=== PATIENT | female | born 1975 | race Caucasian/White ===

== ENCOUNTER 2016-10-28 19:42 | Inpatient (IN) | payer MEDICAID ==
[~2016-10-28] VITALS: Ht 165.1 cm; Wt 69.6 kg
[2016-10-28 20:00] LABS: BARBITURATES NEG (NEG); BENZODIAZEPINES NEG (NEG); CANNABINOIDS NEG (NEG); COCAINE NEG (NEG); METHADONE NEG (NEG); OPIATES NEG (NEG); PHENCYCLIDINE NEG (NEG)
[2016-10-28 20:04] LABS: NEG OBC UR NEG; POS OBC UR POS
[2016-10-28] MEDS ORDERED: IV NORMAL SALINE 1000ML BAG 1,000 ML IV ONE (20:15)
[2016-10-28 20:40] LABS: BASO # 0.2 x10^3/uL (0.0-0.2); BASO % 2 % (0-3); EOS % 2 % (0-3); HEMATOCRIT 23.9 % (36.0-47.0); HEMOGLOBIN 7.2 g/dL (12.0-15.5); LYMPH # 2.3 x10^3/uL (1.0-4.8); LYMPH % 33 % (24-48); MEAN CORPUSCULAR HEMOGLOBIN 20 pg (25-35); MEAN CORPUSCULAR HGB CONC 30 g/dL (31-37); MEAN CORPUSCULAR VOLUME 65 fL (79-100); MONO % 10 % (0-9); NEUT % 53 % (31-73); PLATELET COUNT 320 x10^3/uL (140-400); RED BLOOD COUNT 3.67 x10^6/uL (3.50-5.40); WHITE BLOOD COUNT 7.1 x10^3/uL (4.0-11.0)
[2016-10-28 20:51] LABS: CALCIUM 8.1 mg/dL (8.5-10.1); GFR 61.4
[2016-10-28 21:06] LABS: PLT ESTIMATE ADEQUATE (ADEQUATE)
[2016-10-28 21:07] LABS: ANISOCYTOSIS MOD; HYPOCHROMIA MARKED; MICROCYTOSIS MARKED; TARGET CELLS OCC
[2016-10-28 22:16] LABS: NEG OBC FOB NEG; POS OBC FOB POS
[2016-10-28 22:40] LABS: % SAT IRON 2 % (15-34); IRON,SERUM 9 ug/dL (50-170)
[2016-10-28] MEDS ORDERED: ONDANSETRON PF 4 MG/2 ML VIAL. IV PRN (22:45)
[2016-10-28] MEDS ORDERED: ACETAMINOPHEN 325 MG TABLET. PO PRN (22:45)
[2016-10-28] MEDS ORDERED: fentaNYL PF VIAL 100 MCG/2 ML VIAL IV PRN (22:45)
[2016-10-28] MEDS ORDERED: No home medications (22:50)
--- NOTE | 2016-10-28 23:03 | PDOC1 ---
History and Physical Date of Admission Date of Admission DATE: 10/28/16 TIME: 22:59 Identification/Chief Complaint Chief Complaint ingestion of "unknown" substance Problems: Source Source: Chart review, Patient History of Present Illness History of Present Illness she reports to me that she took some of her friends 800 mg ibuprofen, but then realized the last one was NOT ibuprofen, and she felt that she got something "laced" she was agitated in the ER and was given IV ativan to regain calm, now lethargic, Denies any drug use, and has mult skin lesion from either injection or popping that she attributes to oak mite bites, and from injuring herself at work Past Medical History Heme/Onc: Iron deficiency Anemia Psych: Anxiety, Addictions Family History Family History: Family History Unknown Social History Smoke: <1 pack per day Drugs: Crystal meth Current Problem List Problem List Problems Medical Problems: (1) Anemia Status: Acute Problems: Current Medications Current Medications Current Medications Sodium Chloride 1,000 ml @ 1,000 mls/hr 1X ONCE IV Last administered on 20:26; Start 10/28/16 at 20:15; Stop 10/28/16 at 21:14; Status DC Lorazepam (Ativan) 1 mg 1X ONCE IV Last administered on 10/28/16 20:25; Start 10/28/16 at 20:15; Stop 10/28/16 at 20:16; Status DC Ondansetron HCl (Zofran) 4 mg PRN Q8HRS PRN IV NAUSEA/VOMITING; Start 10/28/16 at 22:45; Stop 10/29/16 at 22:44 Fentanyl Citrate (Fentanyl 2ml Vial) 50 mcg PRN Q2HR PRN IV SEVERE PAIN; Start 10/28/16 at 22:45; Stop 10/29/16 at 22:44 Acetaminophen (Tylenol) 650 mg PRN Q4HRS PRN PO FEVER; Start 10/28/16 at 22:45 ; Stop 10/29/16 at 22:44 Active Scripts Active Reported [No home medications] Allergies Allergies: Coded Allergies: morphine (Verified Allergy, Severe, Cardiac Arrest, 08/31/13) ROS General: YES: Fatigue, Malaise, Appetite, No: Chills, Night Sweats, Other PSYCHOLOGICAL ROS: YES: Sleep disturbances, Other, No: Anxiety, Behavioral Disorder, Concentration difficultie, Decreased libido , Depression, Disorientation, Hallucinations, Hostility, Irritablity, Memory difficulties, Mood Swings, Obsessive thoughts Eyes: No Blurry vision, No Decreased vision, No Double vision, No Dry eyes, No Excessive tearing, No Eye Pain, No Itchy Eyes, No Loss of vision, No Photophobia , No Scotomata, No Uses contacts, No Uses glasses, No Other HEENT: No: Heacaches, Visual Changes, Hearing change, Nasal congestion, Nasal discharge, Oral lesions, Sinus pain, Sore Throat, Epistaxis, Sneezing, Snoring, Tinnitus, Vertigo, Vocal changes, Other Respiratory: No: Cough, Hemoptysis, Orthopnea, Pleuritic Pain, Shortness of breath, SOB with excertion, Sputum Changes, Stridor, Tachypnea, Wheezing, Other Cardiovascular: No Chest Pain, No Palpitations, No Orthopnea, No Paroxysmal Noc. Dyspnea, No Edema, No Lt Headedness, No Other Gastrointestinal: Yes Nausea, No Vomiting, No Abdominal Pain, No Diarrhea, No Constipation, No Melena, No Hematochezia, No Other Genitourinary: No Dysuria, No Frequency, No Incontinence, No Hematuria, No Retention, No Discharge, No Urgency, No Pain, No Flank Pain, No Other, No , No , No , No , No , No , No Musculoskeletal: Yes Joint Pain, Yes Joint Stiffness, No Gait Disturbance, No Joint Swelling, No Muscle Pain, No Muscular Weakness , No Pain In:, No Swelling In:, No Other Neurological: No Behavorial Changes, No Bowel/Bladder ControlChng, No Confusion , No Dizziness, No Gait Disturbance, No Headaches, No Impaired Coord/balance, No Memory Loss, No Numbness/Tingling, No Seizures, No Speech Problems, No Tremors, No Visual Changes, No Weakness, No Other Skin: No Dry Skin, No Eczema, No Hair Changes, No Lumps, No Mole Changes, No Mottling, No Nail Changes, No Pruritus, No Rash, No Skin Lesion Changes, No Other, No Acne Physical Exam General: Alert, Oriented X3, Cooperative, mild distress (sedate) HEENT: Atraumatic, PERRLA Lungs: Clear to auscultation Abdomen: Normal bowel sounds, Soft Rectal Exam: not examined Extremities: No edema, Other (small ecchymosis left skin 5cm) Skin: Other (mult skin lesions, ) Neuro: Sensation intact Psych/Mental Status: Mood NL Vitals Vitals Vital Signs Date Time Temp Pulse Resp B/P (MAP) Pulse Ox O2 Delivery O2 Flow Rate FiO2 10/28/16 21:42 88 18 126/84 (98) 99 Room Air 10/28/16 19:42 98.3 98.3 Labs Labs Laboratory Tests Test 10/28/16 19:44 10/28/16 20:30 10/28/16 22:00 Urine Test Negative (NEG) Urine Opiates Screen Neg (NEG) Urine Methadone Screen Neg (NEG) Urine Barbiturates Neg (NEG) Urine Phencyclidine Screen Neg (NEG) Urine Amphetamine/Methamphetamine Pos (NEG) Urine Benzodiazepines Screen Neg (NEG) Urine Cocaine Screen Neg (NEG) Urine Cannabinoids Screen Neg (NEG) Urine Ethyl Alcohol Neg (NEG) White Blood Count 7.1 x10^3/uL (4.0-11.0) Red Blood Count 3.67 x10^6/uL (3.50-5.40) Hemoglobin 7.2 g/dL (12.0-15.5) Hematocrit 23.9 % (36.0-47.0) Mean Corpuscular Volume 65 fL (79-100) Mean Corpuscular Hemoglobin 20 pg (25-35) Mean Corpuscular Hemoglobin Concent 30 g/dL (31-37) Red Cell Distribution Width 18.0 % (11.5-14.5) Platelet Count 320 x10^3/uL (140-400) Neutrophils (%) (Auto) 53 % (31-73) Lymphocytes (%) (Auto) 33 % (24-48) Monocytes (%) (Auto) 10 % (0-9) Eosinophils (%) (Auto) 2 % (0-3) Basophils (%) (Auto) 2 % (0-3) Neutrophils # (Auto) 3.8 x10^3uL (1.8-7.7) Lymphocytes # (Auto) 2.3 x10^3/uL (1.0-4.8) Monocytes # (Auto) 0.7 x10^3/uL (0.0-1.1) Eosinophils # (Auto) 0.1 x10^3/uL (0.0-0.7) Basophils # (Auto) 0.2 x10^3/uL (0.0-0.2) Platelet Estimate Adequate (ADEQUATE) Hypochromasia Marked Anisocytosis Mod Microcytosis Marked Target Cells Occ Sodium Level 142 mmol/L (136-145) Potassium Level 4.0 mmol/L (3.5-5.1) Chloride Level 108 mmol/L (98-107) Carbon Dioxide Level 23 mmol/L (21-32) Anion Gap 11 (6-14) Blood Urea Nitrogen 18 mg/dL (7-20) Creatinine 1.0 mg/dL (0.6-1.0) Estimated GFR (Cockcroft-Gault) 61.4 Glucose Level 90 mg/dL (70-99) Calcium Level 8.1 mg/dL (8.5-10.1) Iron Level 9 ug/dL (50-170) Total Iron Binding Capacity 414 ug/dL (250-450) Iron Saturation 2 % (15-34) Salicylates Level < 2.8 mg/dL (2.8-20.0) Salicylate Last Dose Date Unk Salicylate Last Dose Time Unk Acetaminophen Level < 2 mcg/ml (10-30) Acetaminophen Last Dose Date Unk Acetaminophen Last Dose Time Unk Stool Occult Blood Negative (NEG) Laboratory Tests Test 10/28/16 19:44 10/28/16 20:30 10/28/16 22:00 Urine Test Negative (NEG) Urine Opiates Screen Neg (NEG) Urine Methadone Screen Neg (NEG) Urine Barbiturates Neg (NEG) Urine Phencyclidine Screen Neg (NEG) Urine Amphetamine/Methamphetamine Pos (NEG) Urine Benzodiazepines Screen Neg (NEG) Urine Cocaine Screen Neg (NEG) Urine Cannabinoids Screen Neg (NEG) Urine Ethyl Alcohol Neg (NEG) White Blood Count 7.1 x10^3/uL (4.0-11.0) Red Blood Count 3.67 x10^6/uL (3.50-5.40) Hemoglobin 7.2 g/dL (12.0-15.5) Hematocrit 23.9 % (36.0-47.0) Mean Corpuscular Volume 65 fL (79-100) Mean Corpuscular Hemoglobin 20 pg (25-35) Mean Corpuscular Hemoglobin Concent 30 g/dL (31-37) Red Cell Distribution Width 18.0 % (11.5-14.5) Platelet Count 320 x10^3/uL (140-400) Neutrophils (%) (Auto) 53 % (31-73) Lymphocytes (%) (Auto) 33 % (24-48) Monocytes (%) (Auto) 10 % (0-9) Eosinophils (%) (Auto) 2 % (0-3) Basophils (%) (Auto) 2 % (0-3) Neutrophils # (Auto) 3.8 x10^3uL (1.8-7.7) Lymphocytes # (Auto) 2.3 x10^3/uL (1.0-4.8) Monocytes # (Auto) 0.7 x10^3/uL (0.0-1.1) Eosinophils # (Auto) 0.1 x10^3/uL (0.0-0.7) Basophils # (Auto) 0.2 x10^3/uL (0.0-0.2) Platelet Estimate Adequate (ADEQUATE) Hypochromasia Marked Anisocytosis Mod Microcytosis Marked Target Cells Occ Sodium Level 142 mmol/L (136-145) Potassium Level 4.0 mmol/L (3.5-5.1) Chloride Level 108 mmol/L (98-107) Carbon Dioxide Level 23 mmol/L (21-32) Anion Gap 11 (6-14) Blood Urea Nitrogen 18 mg/dL (7-20) Creatinine 1.0 mg/dL (0.6-1.0) Estimated GFR (Cockcroft-Gault) 61.4 Glucose Level 90 mg/dL (70-99) Calcium Level 8.1 mg/dL (8.5-10.1) Iron Level 9 ug/dL (50-170) Total Iron Binding Capacity 414 ug/dL (250-450) Iron Saturation 2 % (15-34) Salicylates Level < 2.8 mg/dL (2.8-20.0) Salicylate Last Dose Date Unk Salicylate Last Dose Time Unk Acetaminophen Level < 2 mcg/ml (10-30) Acetaminophen Last Dose Date Unk Acetaminophen Last Dose Time Unk Stool Occult Blood Negative (NEG) VTE Prophylaxis Ordered VTE Prophylaxis Devices: No VTE Pharmacological Prophylaxi: Contraindicated Assessment/Plan Assessment/Plan substance abuse meth abuse and denial of use anemia, iron deficiency, prior IV venofer given, PRBC transfusion ordered by ER SHERRELL Barros MD October 28, 2016 23:03
[2016-10-28] MEDS ORDERED: ALPRAZolam 0.5 MG TABLET PO PRN (23:15)
[2016-10-28 23:21] VITALS: BP 105/73
[2016-10-29] VITALS (15 sets, daily range): BP systolic 90–127; BP diastolic 52–84
--- NOTE | 2016-10-29 00:14 | PHYS DOC ---
Past Medical History Past Medical History: Anemia, Diabetes-Type II, Other Additional Past Medical Histor: B12 deficiency, gastritis Past Surgical History: Cholecystectomy, , Gastric Bypass, Other Additional Past Surgical Histo: hernia Alcohol Use: Rarely Drug Use: None Adult General Chief Complaint Chief Complaint: ACCIDENTAL INGESTION HPI HPI Patient is a 41 year old female who presents with ingestion. The patient states she took ibuprofen 800 mg about 45 minutes prior to arrival & had sudden onset of severe agitation & anxiety. She states her friend gave her the pills a year ago & she has taken them in the past with no symptoms. She denies headache, chest pain, shortness of breath, palpitations, abdominal pain, vomiting, diarrhea. She denies possibility of ingestion of other OTC or prescription medications, drugs, or alcohol. Her sisters state that she is addicted to meth & uses frequently. She also states that she has chronic anemia unsure of baseline Hgb, requiring transfusion in the past. Feels weak all over & requests transfusion today. Review of Systems Review of Systems Constitutional: Denies fever or chills, reports generalized weakness, reports agitation Eyes: Denies change in visual acuity HENT: Denies nasal congestion or sore throat Respiratory: Denies cough or shortness of breath Cardiovascular: Denies chest pain or edema GI: Denies abdominal pain, nausea, vomiting, or diarrhea Musculoskeletal: Denies back pain or joint pain Integument: Denies rash or skin lesions Neurologic: Denies headache, focal weakness or sensory changes Current Medications Current Medications Current Medications Medications (Trade) Dose Ordered Sig/Marielle Start Time Stop Time Status Last Admin Dose Admin Lorazepam (Ativan) 1 mg 1X ONCE 10/28/16 20:15 10/28/16 20:16 DC 10/28/16 20:25 1 MG Sodium Chloride 1,000 ml @ 1,000 mls/hr 1X ONCE 10/28/16 20:15 10/28/16 21:14 DC 10/28/16 20:26 1,000 MLS/HR Allergies Allergies Allergies Coded Allergies Type Severity Reaction Last Updated Verified morphine Allergy Severe Cardiac Arrest 08/31/13 Yes Physical Exam Physical Exam Constitutional: Well developed, well nourished, no acute distress, non-toxic appearance. agitated HENT: Normocephalic, atraumatic, bilateral external ears normal, oropharynx moist, nose normal. Eyes: PERRLA 4 mm bilaterally, EOMI, conjunctiva normal, no discharge. Neck: supple, no stridor. Cardiovascular: tachycardic, regular, no murmurs, no edema. Lungs & Thorax: LCTAB, no wheezing, no respiratory distress. Abdomen: soft, nontender, nondistended. Skin: Warm, dry, no erythema, no rash. rounded sores to bilateral forearms without cellulitis. Back: No tenderness. Extremities: No tenderness, no edema. Neurologic: Alert and oriented X 3, CN2-12 grossly intact, symmetric strength/ sensation to UE & LE, no focal deficits noted. Psychologic: agitated Current Patient Data Vital Signs Vital Signs Date Time Temp Pulse Resp B/P (MAP) Pulse Ox O2 Delivery O2 Flow Rate FiO2 10/28/16 21:15 92 16 110/65 (80) 94 Room Air 10/28/16 19:42 98.3 98.3 Lab Values Laboratory Tests Test 10/28/16 19:44 10/28/16 20:30 Urine Test Negative (NEG) Urine Opiates Screen Neg (NEG) Urine Methadone Screen Neg (NEG) Urine Barbiturates Neg (NEG) Urine Phencyclidine Screen Neg (NEG) Urine Amphetamine/Methamphetamine Pos (NEG) Urine Benzodiazepines Screen Neg (NEG) Urine Cocaine Screen Neg (NEG) Urine Cannabinoids Screen Neg (NEG) Urine Ethyl Alcohol Neg (NEG) White Blood Count 7.1 x10^3/uL (4.0-11.0) Red Blood Count 3.67 x10^6/uL (3.50-5.40) Hemoglobin 7.2 g/dL (12.0-15.5) L Hematocrit 23.9 % (36.0-47.0) L Mean Corpuscular Volume 65 fL (79-100) L Mean Corpuscular Hemoglobin 20 pg (25-35) L Mean Corpuscular Hemoglobin Concent 30 g/dL (31-37) L Red Cell Distribution Width 18.0 % (11.5-14.5) H Platelet Count 320 x10^3/uL (140-400) Neutrophils (%) (Auto) 53 % (31-73) Lymphocytes (%) (Auto) 33 % (24-48) Monocytes (%) (Auto) 10 % (0-9) H Eosinophils (%) (Auto) 2 % (0-3) Basophils (%) (Auto) 2 % (0-3) Neutrophils # (Auto) 3.8 x10^3uL (1.8-7.7) Lymphocytes # (Auto) 2.3 x10^3/uL (1.0-4.8) Monocytes # (Auto) 0.7 x10^3/uL (0.0-1.1) Eosinophils # (Auto) 0.1 x10^3/uL (0.0-0.7) Basophils # (Auto) 0.2 x10^3/uL (0.0-0.2) Platelet Estimate Adequate (ADEQUATE) Hypochromasia Marked Anisocytosis Mod Microcytosis Marked Target Cells Occ Sodium Level 142 mmol/L (136-145) Potassium Level 4.0 mmol/L (3.5-5.1) Chloride Level 108 mmol/L (98-107) H Carbon Dioxide Level 23 mmol/L (21-32) Anion Gap 11 (6-14) Blood Urea Nitrogen 18 mg/dL (7-20) Creatinine 1.0 mg/dL (0.6-1.0) Estimated GFR (Cockcroft-Gault) 61.4 Glucose Level 90 mg/dL (70-99) Calcium Level 8.1 mg/dL (8.5-10.1) L Iron Level 9 ug/dL (50-170) L Total Iron Binding Capacity 414 ug/dL (250-450) Iron Saturation 2 % (15-34) L Salicylates Level < 2.8 mg/dL (2.8-20.0) L Salicylate Last Dose Date Unk Salicylate Last Dose Time Unk Acetaminophen Level < 2 mcg/ml (10-30) L Acetaminophen Last Dose Date Unk Acetaminophen Last Dose Time Unk Laboratory Tests 10/28/16 20:30 Laboratory Tests 10/28/16 20:30 EKG EKG Interpreted by me: Normal sinus rhythm rate 93, no acute ST or T wave changes, normal intervals, no ectopy. [] Radiology/Procedures Radiology/Procedures [] Course & Med Decision Making Course & Med Decision Making Pertinent Labs and Imaging studies reviewed. (See chart for details) Patient presents with ingestion & agitation. Neurologically intact, no focal findings. UDS positive for methamphetamines/amphetamines. Gave ativan & IV fluids upon arrival. She became very drowsy but maintained airway. Hgb is 7, she doesn't remember her baseline, no previous visits here, has previously been transfused for Hgb of 6. She is symptomatic per her report so will give 2 units pRBCs & admit for further evaluation. She agrees with plan of care. Discussed with Dr. Ball who agrees to admit to inpatient status. Admitted in stable condition. [] Dragon Disclaimer Dragon Disclaimer This electronic medical record was generated, in whole or in part, using a voice recognition dictation system. Departure Departure Impression: Primary Impression: Anemia Additional Impressions: Methamphetamine abuse Agitation Disposition: ADMITTED INPATIENT Admitting Physician: Claudia Ball Condition: STABLE Referrals: MONIQUE MI MD (PCP) Problem Qualifiers RYAN BRIGGS MD October 29, 2016 00:14
--- NOTE | 2016-10-29 07:12 | EKG ---
[facility] [address] [place] [address] Test Date: 2016-10-28 Test Time: 20:19:44 Pat Name: SHABANA ROCHE Department: Room: 524 1 Gender: F Shipping Room Helper: : [id number] Requested By: RYAN BRIGGS Order Number: [id number] Reading MD: Eric Macario Measurements Intervals [place] Rate: 93 P: 59 CT: 116 QRS: 72 QRSD: 74 T: 39 QT: 346 QTc: 433 Interpretive Statements SINUS RHYTHM Electronically Signed On 10-29-2016 10:44:45 CDT by Eric Macario
[2016-10-29] MEDS ORDERED: B12/1TAB3 PO (10:00)
[2016-10-29] MEDS ORDERED: FERR-26 PO (10:00)
[2016-10-29 10:06] LABS: BASO # 0.1 x10^3/uL (0.0-0.2); BASO % 1 % (0-3); EOS % 2 % (0-3); HEMATOCRIT 28.9 % (36.0-47.0); HEMOGLOBIN 9.2 g/dL (12.0-15.5); LYMPH # 1.3 x10^3/uL (1.0-4.8); LYMPH % 20 % (24-48); MEAN CORPUSCULAR HEMOGLOBIN 22 pg (25-35); MEAN CORPUSCULAR HGB CONC 32 g/dL (31-37); MEAN CORPUSCULAR VOLUME 68 fL (79-100); MONO % 11 % (0-9); NEUT % 65 % (31-73); PLATELET COUNT 296 x10^3/uL (140-400); RED BLOOD COUNT 4.26 x10^6/uL (3.50-5.40); RED CELL DISTRIBUTION WIDTH 21.4 % (11.5-14.5); WHITE BLOOD COUNT 6.5 x10^3/uL (4.0-11.0)
[2016-10-29 10:23] LABS: CREATININE 0.6 mg/dL (0.6-1.0); GFR 110.7; POTASSIUM 4.2 mmol/L (3.5-5.1)
[2016-10-29] MEDS ORDERED: IRON SUCROSE COMPLEX 500 MG in IV NORMAL SALINE 250ML 250 ML IV ONE (10:30)
[2016-10-29] MEDS ORDERED: CYANOCOBALAMIN (VITAMIN B-12) 1,000 MCG/ML VIAL IM ONE (10:30)
[2016-10-29] MEDS ORDERED: VITAMIN B12,B9,B6 COMPLEX 1 TABLET. PO SCH (10:30)
== END 2016-10-29 17:51 | disposition home or self-care (01) | DRG 884 ==
LOC: ER 19:42 → 5 NORTH 21:31
PROVIDERS: ADMIT Internal Medicine; ATTEND Internal Medicine
PROC: 30233N1 Transfusion of Nonautologous Red Blood Cells into Peripheral Vein, Percutaneous Approach (ICD-10-PCS; principal; 2016-10-29)
DX: R45.1 Restlessness and agitation (principal); F15.10 Other stimulant abuse, uncomplicated; D50.9 Iron deficiency anemia, unspecified; E11.9 Type 2 diabetes mellitus without complications; F41.9 Anxiety disorder, unspecified; F17.210 Nicotine dependence, cigarettes, uncomplicated; E53.8 Deficiency of other specified B group vitamins; Z90.49 Acquired absence of other specified parts of digestive tract; Z88.5 Allergy status to narcotic agent; Z98.84 Bariatric surgery status; Z79.899 Other long term (current) drug therapy; Z79.1 Long term (current) use of non-steroidal anti-inflammatories (NSAID)
CPT/HCPCS: 36415; 80048; 80329; 81025; 82274; 83540; 83550; 85007; 85027; 86850; 86870; 86900; 86901; 86902; 86922; 87641; 93005; 96361; 96374; G0481; J1756; J2060; J3010; J3420; J7030; J7050; P9016; 99285-25

== ENCOUNTER 2017-09-23 18:55 | Emergency (ER) | payer OTHER, MEDICAID ==
[2017-09-23 19:48] LABS: ADD MAN DIFF? NO
[2017-09-23 19:50] LABS: BASO % 0 % (0-3); EOS # 0.1 x10^3/uL (0.0-0.7); EOS % 2 % (0-3); HEMATOCRIT 30.4 % (36.0-47.0); HEMOGLOBIN 10.2 g/dL (12.0-15.5); LYMPH # 2.1 x10^3/uL (1.0-4.8); LYMPH % 39 % (24-48); MEAN CORPUSCULAR HEMOGLOBIN 27 pg (25-35); MEAN CORPUSCULAR HGB CONC 34 g/dL (31-37); MEAN CORPUSCULAR VOLUME 79 fL (79-100); MONO # 0.5 x10^3/uL (0.0-1.1); MONO % 10 % (0-9); NEUT # 2.6 x10^3uL (1.8-7.7); NEUT % 49 % (31-73); PLATELET COUNT 359 x10^3/uL (140-400); RED BLOOD COUNT 3.83 x10^6/uL (3.50-5.40); RED CELL DISTRIBUTION WIDTH 16.7 % (11.5-14.5); WHITE BLOOD COUNT 5.4 x10^3/uL (4.0-11.0)
[2017-09-23 20:21] LABS: ALBUMIN 3.1 g/dL (3.4-5.0); ALBUMIN/GLOBULIN RATIO 0.8 (1.0-1.7); ALK PHOS 71 U/L (46-116); ALT (SGPT) 19 U/L (14-59); ANION GAP 5 (6-14); AST (SGOT) 17 U/L (15-37); BLOOD UREA NITROGEN 13 mg/dL (7-20); BUN/CREATININE RATIO 16 (6-20); CALCIUM 8.9 mg/dL (8.5-10.1); CARBON DIOXIDE 28 mmol/L (21-32); CHLORIDE 106 mmol/L (98-107); CREATININE 0.8 mg/dL (0.6-1.0); GLUCOSE 92 mg/dL (70-99); POTASSIUM 3.8 mmol/L (3.5-5.1); SODIUM 139 mmol/L (136-145); TOTAL BILIRUBIN 0.2 mg/dL (0.2-1.0); TOTAL PROTEIN 6.8 g/dL (6.4-8.2)
== END 2017-09-23 21:45 | disposition home or self-care (01) ==
LOC: ER 18:55
DX: R53.1 Weakness (principal); E11.9 Type 2 diabetes mellitus without complications; Z90.49 Acquired absence of other specified parts of digestive tract; Z98.890 Other specified postprocedural states; F15.10 Other stimulant abuse, uncomplicated
CPT/HCPCS: 36415; 80053; 85025; 93005; 99285-25

== ENCOUNTER 2019-07-24 18:19 | Inpatient (IN) | payer BC, OTHER ==
[~2019-07-24] VITALS: Ht 165.1 cm; Wt 65.2 kg
[~2019-07-24 18:19] MED LIST: B12/1TAB3 PO; FERR325T14 PO; No home medications
[2019-07-24] MEDS ORDERED: IV NORMAL SALINE 1000ML BAG 1,000 ML IV SCH (18:54)
[2019-07-24 19:17] LABS: BASO # 0.1 x10^3/uL (0.0-0.2); BASO % 1 % (0-3); EOS # 0.1 x10^3/uL (0.0-0.7); EOS % 2 % (0-3); LYMPH # 2.2 x10^3/uL (1.0-4.8); LYMPH % 36 % (24-48); MEAN CORPUSCULAR HEMOGLOBIN 18 pg (25-35); MEAN CORPUSCULAR HGB CONC 30 g/dL (31-37); MEAN CORPUSCULAR VOLUME 60 fL (79-100); MONO # 0.4 x10^3/uL (0.0-1.1); MONO % 6 % (0-9); NEUT # 3.4 x10^3/uL (1.8-7.7); NEUT % 55 % (31-73); PLATELET COUNT 473 x10^3/uL (140-400); RED BLOOD COUNT 3.36 x10^6/uL (3.50-5.40); WHITE BLOOD COUNT 6.2 x10^3/uL (4.0-11.0)
[2019-07-24 19:20] LABS: HEMOGLOBIN 6.1 g/dL (12.0-15.5)
[2019-07-24 19:21] LABS: HEMATOCRIT 20.2 % (36.0-47.0); PROTHROMBIN TIME PATIENT 12.7 SEC (11.7-14.0)
[2019-07-24 19:36] LABS: CALCIUM 8.1 mg/dL (8.5-10.1); CREATININE 0.6 mg/dL (0.6-1.0); GFR 109.1; POTASSIUM 3.8 mmol/L (3.5-5.1)
[2019-07-24 19:38] LABS: BILIRUBIN,URINE NEGATIVE (NEG); CLARITY,URINE CLEAR; COLOR,URINE YELLOW; NITRITE,URINE NEGATIVE (NEG); PH,URINE 7.5; PROTEIN,URINE NEGATIVE (NEG-TRACE); UROBILINOGEN,URINE 0.2 mg/dL (0.2 mg/dL)
--- NOTE | 2019-07-24 19:43 | PHYS DOC ---
Past Medical History Past Medical History: Anemia, Diabetes-Type II Additional Past Medical Histor: B12 deficiency, gastritis Past Surgical History: Cholecystectomy, , Gastric Bypass Additional Past Surgical Histo: HERNIA REPAIR, RIGHT ANKLE, D&C Smoking Status: Current Every Day Smoker Alcohol Use: None Drug Use: Methamphetamine Adult General Chief Complaint Chief Complaint: DIZZY/LIGHT HEADED HPI HPI Patient is a 44 year old female with history of diet-controlled diabetes, anemia and blood transfusion related to gastric bypass in 2004 who presents with complaint of dizziness and weakness. Patient states she has had episodes of dizziness for the last 5 months that getting worse for the last 2 months. 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 Patient complaining of episodes of palpitation with mild activity without chest pain. Patient states she gets episodes of headache for 5 times a week and uses Advil. Patient denies melena and hematemesis and menometrorrhagia. She states she had history of blood transfusion related to bleeding from gastric bypass surgery. Review of Systems Review of Systems Constitutional: Denies fever or chills [] Eyes: Denies change in visual acuity, redness, or eye pain [] HENT: Denies nasal congestion or sore throat [] Respiratory: Denies cough, reports shortness of breath [] Cardiovascular: No additional information not addressed in HPI [] GI: Denies abdominal pain, nausea, vomiting, bloody stools or diarrhea [] : Denies dysuria or hematuria [] Musculoskeletal: Denies back pain or joint pain [] Integument: Denies rash or skin lesions [] Neurologic: Denies focal weakness or sensory changes, reports dizziness and headache [] Endocrine: Denies polyuria or polydipsia [] All other systems were reviewed and found to be within normal limits, except as documented in this note. Current Medications Current Medications Current Medications Medications (Trade) Dose Ordered Sig/Marielle Start Time Stop Time Status Last Admin Dose Admin Sodium Chloride 1,000 ml @ 1,000 mls/hr Q1H 07/24/19 18:54 07/24/19 19:53 DC 07/24/19 19:03 1,000 MLS/HR Allergies Allergies Allergies Coded Allergies Type Severity Reaction Last Updated Verified morphine Allergy Severe Cardiac Arrest 08/31/13 Yes Physical Exam Physical Exam Constitutional: Well developed, well nourished, mild distress, non-toxic appearance, mild pallor. [] HENT: Normocephalic, atraumatic, bilateral external ears normal, oropharynx moist, no oral exudates, nose normal. [] Eyes: PERRLA, EOMI, conjunctiva normal, no discharge. [] Neck: Normal range of motion, no tenderness, supple, no stridor. [] Cardiovascular:Heart rate regular rhythm, no murmur [] Lungs & Thorax: Bilateral breath sounds clear to auscultation [] Abdomen: Bowel sounds normal, soft, no tenderness, no masses, no pulsatile masses. [] Skin: Warm, dry, no erythema, no rash. [] Back: No tenderness, no CVA tenderness. [] Extremities: No tenderness, no cyanosis, no clubbing, ROM intact, no edema. [] Neurologic: Alert and oriented X 3, normal motor function, normal sensory function, no focal deficits noted. [] Psychologic: Affect normal, judgement normal, mood normal. [] Current Patient Data Vital Signs Vital Signs Date Time Temp Pulse Resp B/P (MAP) Pulse Ox O2 Delivery O2 Flow Rate FiO2 07/24/19 19:03 92 18 100 07/24/19 18:40 98.2 134/79 (97) Room Air 98.2 Lab Values Laboratory Tests Test 07/24/19 19:00 White Blood Count 6.2 x10^3/uL (4.0-11.0) Red Blood Count 3.35 x10^6/uL (3.50-5.70) L Hemoglobin 6.1 g/dL (12.0-15.5) *L Hematocrit 20.2 % (36.0-47.0) *L Mean Corpuscular Volume 60 fL (79-100) L Mean Corpuscular Hemoglobin 18 pg (25-35) L Mean Corpuscular Hemoglobin Concent 30 g/dL (31-37) L Red Cell Distribution Width 18.0 % (11.5-14.5) H Platelet Count 473 x10^3/uL (140-400) H Neutrophils (%) (Auto) 55 % (31-73) Lymphocytes (%) (Auto) 36 % (24-48) Monocytes (%) (Auto) 6 % (0-9) Eosinophils (%) (Auto) 2 % (0-3) Basophils (%) (Auto) 1 % (0-3) Neutrophils # (Auto) 3.4 x10^3/uL (1.8-7.7) Lymphocytes # (Auto) 2.2 x10^3/uL (1.0-4.8) Monocytes # (Auto) 0.4 x10^3/uL (0.0-1.1) Eosinophils # (Auto) 0.1 x10^3/uL (0.0-0.7) Basophils # (Auto) 0.1 x10^3/uL (0.0-0.2) Platelet Estimate Increased (ADEQUATE) Hypochromasia Mod Microcytosis Mod Macrocytosis Slight Rouleaux Present Absolute Reticulocyte Count 0.049 x10^6/uL (0.020-0.120) Percent Reticulocyte Count 1.5 % (0.5-2.3) Immature Reticulocyte Fraction 0.37 (0.20-0.60) Prothrombin Time 12.7 SEC (11.7-14.0) Prothrombin Time INR 1.0 (0.8-1.1) Sodium Level 138 mmol/L (136-145) Potassium Level 3.8 mmol/L (3.5-5.1) Chloride Level 104 mmol/L (98-107) Carbon Dioxide Level 25 mmol/L (21-32) Anion Gap 9 (6-14) Blood Urea Nitrogen 14 mg/dL (7-20) Creatinine 0.6 mg/dL (0.6-1.0) Estimated GFR (Cockcroft-Gault) 109.1 BUN/Creatinine Ratio 23 (6-20) H Glucose Level 82 mg/dL (70-99) Calcium Level 8.1 mg/dL (8.5-10.1) L Magnesium Level 1.9 mg/dL (1.8-2.4) Total Bilirubin 0.2 mg/dL (0.2-1.0) Aspartate Amino Transferase (AST) 26 U/L (15-37) Alanine Aminotransferase (ALT) 19 U/L (14-59) Alkaline Phosphatase 86 U/L (46-116) Creatine Kinase 186 U/L (26-192) Troponin I Quantitative < 0.017 ng/mL (0.000-0.055) SJ-Eel-F-Type Natriuretic Peptide 143 pg/mL (0-124) H Total Protein 6.3 g/dL (6.4-8.2) L Albumin 3.1 g/dL (3.4-5.0) L Albumin/Globulin Ratio 1.0 (1.0-1.7) Lipase 90 U/L (73-393) Thyroid Stimulating Hormone (TSH) 1.760 uIU/mL (0.358-3.74) Laboratory Tests 07/24/19 19:00 Laboratory Tests 07/24/19 19:00 EKG EKG EKG interpreted by me. EKG at 1830 showed sinus tachycardia at rate of 106, left atrial abnormality, RVH, T-wave abnormalities anterior leads, no acute ST and T-wave elevation.] Radiology/Procedures Radiology/Procedures [place] [phone] IMAGING REPORT Signed PATIENT: SHABANA CASTILLO ACCOUNT: [id number] : 1975 LOCATION: ER AGE: 44 SEX: F EXAM STATUS: PRE ER ORD. PHYSICIAN: KELLE CANCINO MD REASON: dizziness PROCEDURE: CHEST PA & LATERAL EXAM: CHEST 2 VIEWS. HISTORY: Dizziness. COMPARISON: 01/30/2007. FINDINGS: Frontal and lateral views of the chest are obtained. There are no confluent infiltrates. There is no pneumothorax or pleural effusion. The heart is not enlarged. Cholecystectomy clips are noted. IMPRESSION: 1. No confluent infiltrates. Electronically signed by: Leny Fajardo MD (07/24/2019 7:52 PM) [id number] DICTATED and SIGNED BY: BILLY FAJARDO MD DATE: 07/24/191951 [address] [address] IMAGING REPORT Signed PATIENT: SHABANA CASTILLO ACCOUNT: [id number] : 1975 LOCATION: ER AGE: 44 SEX: F EXAM STATUS: REG ER ORD. PHYSICIAN: KELLE CANCINO MD REASON: dizziness PROCEDURE: CT HEAD WO CONTRAST EXAM: CT Head without IV contrast INDICATION: Dizziness. TECHNIQUE: Multi-detector row CT images were obtained of the head without the use of IV contrast. All CT scans performed at this facility utilize dose optimization techniques as appropriate to the exam, including the following: Automated exposure control and adjustment of the mA and/or KV according to patient size (this includes techniques or standardized protocols for targeted exams where dose is indication/reason for exam). COMPARISON: None FINDINGS: BRAIN PARENCHYMA: No evidence of acute intraparenchymal hemorrhage or infarct. No abnormal parenchymal density or mass. VENTRICLES & EXTRA-AXIAL SPACES: Ventricles are within normal limits. Basilar cisterns are patent. No pathologic extra-axial fluid collection or mass. ORBITS: Orbital contents are unremarkable. SINUSES: Visualized paranasal sinuses and mastoid air cells are clear. OSSEOUS & SOFT TISSUES: Calvarium and skull base are intact. IMPRESSION: Normal CT of the head without contrast. Electronically signed by: Manuel Jensen MD (07/24/2019 8:46 PM) [facility] DICTATED and SIGNED BY: MANUEL JENSEN MD DATE: 07/24/192045 Course & Med Decision Making Course & Med Decision Making Pertinent Labs and Imaging studies reviewed. (See chart for details) Evaluation of patient in ER showed 44-year-old female patient with history of gastric bypass and anemia and blood transfusion presented to ER with complaining of patient received generalized weakness. Patient had hemoglobin of 6.1 and 2 units of blood for transfusion was requested. Patient requiring admission for further evaluation and treatment. Discussed with Dr. Mary who is in agreement with admission. Discussed findings and plan with patient and family, who acknowledge understanding and agreement. Dragon Disclaimer Dragon Disclaimer This electronic medical record was generated, in whole or in part, using a voice recognition dictation system. Departure Departure Impression: Primary Impression: Severe anemia Additional Impressions: Dizziness History of gastric bypass Disposition: ADMITTED INPATIENT (at 1944) Admitting Physician: FADUMO (Dr. Mary accepted admission at 1943) Condition: IMPROVED Referrals: UNKNOWN PCP NAME (PCP) Problem Qualifiers KELLE CANCINO MD Jul 24, 2019 19:43
[2019-07-24] MEDS ORDERED: DOCUSATE SODIUM 100 MG CAPSULE. PO PRN (19:45)
[2019-07-24] MEDS ORDERED: guaiFENesin ORAL 200 MG/10 ML LIQUID. PO PRN (19:45)
[2019-07-24] MEDS ORDERED: ACETAMINOPHEN 325 MG TABLET. PO PRN ×2 (19:45→20:30)
[2019-07-24] MEDS ORDERED: ZOLPIDEM 5 MG TABLET. PO PRN (19:45)
[2019-07-24] MEDS ORDERED: LORazepam 0.5 MG TABLET PO PRN (19:45)
[2019-07-24] MEDS ORDERED: ALBUTEROL SULFATE 2.5 MG/3 ML NEBU. NEB PRN (19:45)
[2019-07-24] MEDS ORDERED: ONDANSETRON PF 4 MG/2 ML VIAL. IV PRN (19:45)
[2019-07-24 19:48] LABS: ALBUMIN 3.1 g/dL (3.4-5.0); MAGNESIUM 1.9 mg/dL (1.8-2.4); TOTAL BILIRUBIN 0.2 mg/dL (0.2-1.0); TOTAL PROTEIN 6.3 g/dL (6.4-8.2)
[2019-07-24 19:49] LABS: BARBITURATES NEG (NEG); BENZODIAZEPINES NEG (NEG); CANNABINOIDS NEG (NEG); COCAINE NEG (NEG); METHADONE NEG (NEG); OPIATES NEG (NEG); PHENCYCLIDINE NEG (NEG)
[2019-07-24 19:51] LABS: AMPHETAMINE/METHAMPHETAMINE NEG (NEG)
[2019-07-24 19:55] LABS: BACTERIA,URINE 0 /HPF (0-FEW); SQUAMOUS EPITHELIAL CELL,UR FEW /LPF
--- NOTE | 2019-07-24 19:55 | RAD ---
EXAM: CHEST 2 VIEWS. HISTORY: Dizziness. COMPARISON: 01/30/2007. FINDINGS: Frontal and lateral views of the chest are obtained. There are no confluent infiltrates. There is no pneumothorax or pleural effusion. The heart is not enlarged. Cholecystectomy clips are noted. IMPRESSION: 1. No confluent infiltrates. Electronically signed by: Leny Fajardo MD (07/24/2019 7:52 PM) [id number]
[2019-07-24] MEDS: IPRATRPIUM/ALBUTEROL 0.5/2.5MG 3 ML NEBU. NEB SCH ×2 (20:00→23:57)
[2019-07-24 20:17] LABS: U PREG PATIENT NEGATIVE (NEG)
[2019-07-24 20:23] LABS: HYPOCHROMIA MOD; PLT ESTIMATE INCREASED (ADEQUATE)
[2019-07-24 20:25] LABS: MICROCYTOSIS MOD
[2019-07-24 20:26] LABS: ROULEAUX PRESENT
[2019-07-24] MEDS ORDERED: diphenhydrAMINE ORAL ELIXIR 12.5 MG/5 ML ML PO PRN (20:30)
--- NOTE | 2019-07-24 20:31 | PDOC1 ---
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 She managed to get down to safety and since she has had similar episodes in the past she decided to come to the emergency department for further evaluation and treatment. 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 The patient has not had follow-up recently and given that her symptoms were quite similar to other episodes where she needed transfusion she decided to consult. She denied any blurred vision no loss of consciousness he did complain of a headache although cephalic without aura no migraine type. She denies chest pain palpitations shortness of breath no abdominal pain no nausea no vomiting no diarrhea. Her hemoglobin was found to be 6.6 and we were asked to admit for transfusion Past Medical History Heme/Onc: Iron deficiency Anemia Psych: Anxiety, Addictions Family History Family History: Family History Unknown Social History Drugs: Crystal meth Current Problem List Problem List Problems Medical Problems: (1) Severe anemia Status: Acute Current Medications Current Medications Current Medications Medications (Trade) Dose Ordered Sig/Marielle Start Time Stop Time Status Last Admin Dose Admin Acetaminophen (Tylenol) 650 mg PRN Q4HRS PRN 07/24/19 19:45 Albuterol Sulfate (Ventolin Neb Soln) 2.5 mg PRN Q4HRS PRN 07/24/19 19:45 Albuterol/ Ipratropium (Duoneb) 3 ml Q4HRS 07/24/19 20:00 Docusate Sodium (Colace) 100 mg PRN BID PRN 07/24/19 19:45 Ferrous Sulfate (Feosol) 325 mg DAILY 07/25/19 09:00 Guaifenesin (Robitussin) 200 mg PRN Q4HRS PRN 07/24/19 19:45 Lorazepam (Ativan) 0.5 mg PRN Q4HRS PRN 07/24/19 19:45 Ondansetron HCl (Zofran) 4 mg PRN Q4HRS PRN 07/24/19 19:45 Sodium Chloride 1,000 ml @ 1,000 mls/hr Q1H 07/24/19 18:54 07/24/19 19:53 DC 07/24/19 19:03 1,000 MLS/HR Vitamin B Complex (Jacinto B) 1 tab DAILY 07/25/19 09:00 Zolpidem Tartrate (Ambien) 5 mg PRN QHS PRN 07/24/19 19:45 Allergies Allergies Allergies Coded Allergies Type Severity Reaction Last Updated Verified morphine Allergy Severe Cardiac Arrest 08/31/13 Yes ROS Review of System CONSTITUTIONAL: No fever or chills EYES: No recent changes SKIN: No rash or itching CARDIOVASCULAR: No chest pain, syncope, palpitations, or edema RESPIRATORY: No SOB or cough GASTROINTESTINAL: No nausea, vomiting or abdominal pain NEUROLOGICAL: No headaches or weakness ENDOCRINE: No cold or heat intolerance GENITOURINARY: No urgency or frequency of urination MUSCULOSKELETAL: No back pain or joint pain LYMPHATICS: No enlarged lymph nodes PSYCHIATRIC: No anxiety or depression Physical Exam Physical Exam GEN.: No apparent distress. Alert and oriented. HEENT: Head is normocephalic, atraumatic NECK: Supple. LUNGS: Clear to auscultation. HEART: RRR, S1, S2 present. Peripheral pulses intact ABDOMEN: Soft, nontender. Positive bowel sounds. EXTREMITIES: Without any cyanosis. NEUROLOGIC: Normal speech, normal tone PSYCHIATRIC: Normal affect, normal mood. SKIN: No ulcerations Vitals Vitals Vital Signs Date Time Temp Pulse Resp B/P (MAP) Pulse Ox O2 Delivery O2 Flow Rate FiO2 07/24/19 19:03 92 18 100 07/24/19 18:40 98.2 134/79 (97) Room Air 98.2 Labs Labs Laboratory Tests Test 07/24/19 19:00 07/24/19 19:30 White Blood Count 6.2 x10^3/uL (4.0-11.0) Red Blood Count 3.35 x10^6/uL (3.50-5.70) Hemoglobin 6.1 g/dL (12.0-15.5) Hematocrit 20.2 % (36.0-47.0) Mean Corpuscular Volume 60 fL (79-100) Mean Corpuscular Hemoglobin 18 pg (25-35) Mean Corpuscular Hemoglobin Concent 30 g/dL (31-37) Red Cell Distribution Width 18.0 % (11.5-14.5) Platelet Count 473 x10^3/uL (140-400) Neutrophils (%) (Auto) 55 % (31-73) Lymphocytes (%) (Auto) 36 % (24-48) Monocytes (%) (Auto) 6 % (0-9) Eosinophils (%) (Auto) 2 % (0-3) Basophils (%) (Auto) 1 % (0-3) Neutrophils # (Auto) 3.4 x10^3/uL (1.8-7.7) Lymphocytes # (Auto) 2.2 x10^3/uL (1.0-4.8) Monocytes # (Auto) 0.4 x10^3/uL (0.0-1.1) Eosinophils # (Auto) 0.1 x10^3/uL (0.0-0.7) Basophils # (Auto) 0.1 x10^3/uL (0.0-0.2) Platelet Estimate Increased (ADEQUATE) Hypochromasia Mod Microcytosis Mod Macrocytosis Slight Rouleau Present Absolute Reticulocyte Count 0.049 x10^6/uL (0.020-0.120) Percent Reticulocyte Count 1.5 % (0.5-2.3) Immature Reticulocyte Fraction 0.37 (0.20-0.60) Prothrombin Time 12.7 SEC (11.7-14.0) Prothromb Time International Ratio 1.0 (0.8-1.1) Sodium Level 138 mmol/L (136-145) Potassium Level 3.8 mmol/L (3.5-5.1) Chloride Level 104 mmol/L (98-107) Carbon Dioxide Level 25 mmol/L (21-32) Anion Gap 9 (6-14) Blood Urea Nitrogen 14 mg/dL (7-20) Creatinine 0.6 mg/dL (0.6-1.0) Estimated GFR (Cockcroft-Gault) 109.1 BUN/Creatinine Ratio 23 (6-20) Glucose Level 82 mg/dL (70-99) Calcium Level 8.1 mg/dL (8.5-10.1) Magnesium Level 1.9 mg/dL (1.8-2.4) Total Bilirubin 0.2 mg/dL (0.2-1.0) Aspartate Amino Transf (AST/SGOT) 26 U/L (15-37) Alanine Aminotransferase (ALT/SGPT) 19 U/L (14-59) Alkaline Phosphatase 86 U/L (46-116) Creatine Kinase 186 U/L (26-192) Troponin I Quantitative < 0.017 ng/mL (0.000-0.055) GN-Eat-S-Type Natriuretic Peptide 143 pg/mL (0-124) Total Protein 6.3 g/dL (6.4-8.2) Albumin 3.1 g/dL (3.4-5.0) Albumin/Globulin Ratio 1.0 (1.0-1.7) Lipase 90 U/L (73-393) Thyroid Stimulating Hormone (TSH) 1.760 uIU/mL (0.358-3.74) Urine Collection Type Unknown Urine Color Yellow Urine Clarity Clear Urine pH 7.5 Urine Specific [place] 1.020 Urine Protein Negative mg/dL (NEG-TRACE) Urine Glucose (UA) Negative mg/dL (NEG) Urine Ketones (Stick) Negative mg/dL (NEG) Urine Blood Negative (NEG) Urine Nitrite Negative (NEG) Urine Bilirubin Negative (NEG) Urine Urobilinogen Dipstick 0.2 mg/dL (0.2 mg/dL) Urine Leukocyte Esterase Negative (NEG) Urine RBC 1-2 /HPF (0-2) Urine WBC 1-4 /HPF (0-4) Urine Squamous Epithelial Cells Few /LPF Urine Bacteria 0 /HPF (0-FEW) Urine Test Negative (NEG) Urine Opiates Screen Neg (NEG) Urine Methadone Screen Neg (NEG) Urine Barbiturates Neg (NEG) Urine Phencyclidine Screen Neg (NEG) Urine Amphetamine/Methamphetamine Neg (NEG) Urine Benzodiazepines Screen Neg (NEG) Urine Cocaine Screen Neg (NEG) Urine Cannabinoids Screen Neg (NEG) Urine Ethyl Alcohol Neg (NEG) Laboratory Tests Test 07/24/19 19:00 07/24/19 19:30 White Blood Count 6.2 x10^3/uL (4.0-11.0) Red Blood Count 3.35 x10^6/uL (3.50-5.70) Hemoglobin 6.1 g/dL (12.0-15.5) Hematocrit 20.2 % (36.0-47.0) Mean Corpuscular Volume 60 fL (79-100) Mean Corpuscular Hemoglobin 18 pg (25-35) Mean Corpuscular Hemoglobin Concent 30 g/dL (31-37) Red Cell Distribution Width 18.0 % (11.5-14.5) Platelet Count 473 x10^3/uL (140-400) Neutrophils (%) (Auto) 55 % (31-73) Lymphocytes (%) (Auto) 36 % (24-48) Monocytes (%) (Auto) 6 % (0-9) Eosinophils (%) (Auto) 2 % (0-3) Basophils (%) (Auto) 1 % (0-3) Neutrophils # (Auto) 3.4 x10^3/uL (1.8-7.7) Lymphocytes # (Auto) 2.2 x10^3/uL (1.0-4.8) Monocytes # (Auto) 0.4 x10^3/uL (0.0-1.1) Eosinophils # (Auto) 0.1 x10^3/uL (0.0-0.7) Basophils # (Auto) 0.1 x10^3/uL (0.0-0.2) Platelet Estimate Increased (ADEQUATE) Hypochromasia Mod Microcytosis Mod Macrocytosis Slight Rouleau Present Absolute Reticulocyte Count 0.049 x10^6/uL (0.020-0.120) Percent Reticulocyte Count 1.5 % (0.5-2.3) Immature Reticulocyte Fraction 0.37 (0.20-0.60) Prothrombin Time 12.7 SEC (11.7-14.0) Prothromb Time International Ratio 1.0 (0.8-1.1) Sodium Level 138 mmol/L (136-145) Potassium Level 3.8 mmol/L (3.5-5.1) Chloride Level 104 mmol/L (98-107) Carbon Dioxide Level 25 mmol/L (21-32) Anion Gap 9 (6-14) Blood Urea Nitrogen 14 mg/dL (7-20) Creatinine 0.6 mg/dL (0.6-1.0) Estimated GFR (Cockcroft-Gault) 109.1 BUN/Creatinine Ratio 23 (6-20) Glucose Level 82 mg/dL (70-99) Calcium Level 8.1 mg/dL (8.5-10.1) Magnesium Level 1.9 mg/dL (1.8-2.4) Total Bilirubin 0.2 mg/dL (0.2-1.0) Aspartate Amino Transf (AST/SGOT) 26 U/L (15-37) Alanine Aminotransferase (ALT/SGPT) 19 U/L (14-59) Alkaline Phosphatase 86 U/L (46-116) Creatine Kinase 186 U/L (26-192) Troponin I Quantitative < 0.017 ng/mL (0.000-0.055) ZX-Aev-X-Type Natriuretic Peptide 143 pg/mL (0-124) Total Protein 6.3 g/dL (6.4-8.2) Albumin 3.1 g/dL (3.4-5.0) Albumin/Globulin Ratio 1.0 (1.0-1.7) Lipase 90 U/L (73-393) Thyroid Stimulating Hormone (TSH) 1.760 uIU/mL (0.358-3.74) Urine Collection Type Unknown Urine Color Yellow Urine Clarity Clear Urine pH 7.5 Urine Specific [place] 1.020 Urine Protein Negative mg/dL (NEG-TRACE) Urine Glucose (UA) Negative mg/dL (NEG) Urine Ketones (Stick) Negative mg/dL (NEG) Urine Blood Negative (NEG) Urine Nitrite Negative (NEG) Urine Bilirubin Negative (NEG) Urine Urobilinogen Dipstick 0.2 mg/dL (0.2 mg/dL) Urine Leukocyte Esterase Negative (NEG) Urine RBC 1-2 /HPF (0-2) Urine WBC 1-4 /HPF (0-4) Urine Squamous Epithelial Cells Few /LPF Urine Bacteria 0 /HPF (0-FEW) Urine Test Negative (NEG) Urine Opiates Screen Neg (NEG) Urine Methadone Screen Neg (NEG) Urine Barbiturates Neg (NEG) Urine Phencyclidine Screen Neg (NEG) Urine Amphetamine/Methamphetamine Neg (NEG) Urine Benzodiazepines Screen Neg (NEG) Urine Cocaine Screen Neg (NEG) Urine Cannabinoids Screen Neg (NEG) Urine Ethyl Alcohol Neg (NEG) VTE Prophylaxis Ordered VTE Prophylaxis Devices: Yes VTE Pharmacological Prophylaxi: No Assessment/Plan Assessment/Plan Iron deficiency anemia symptomatic History of gastric bypass Plan: Transfuse 1 unit of packed red blood cells Reassess in the a.m. Labs in the a.m. DVT prophylaxis SCDs Further recommendations based on the clinical course XENA LEE MD Jul 24, 2019 20:31
--- NOTE | 2019-07-24 20:48 | EKG ---
[facility] [address] [place] [address] Test Date: 2019-07-24 Test Time: 18:30:43 Pat Name: SHABANA CASTILLO Department: Room: Gender: F Research [employer] Evaluation Analyst: : 1975 Requested By: KELLE CANCINO Order Number: [id number] Reading MD: Measurements Intervals Graham Rate: 106 P: 51 RI: 94 QRS: 66 QRSD: 82 T: 18 QT: 384 QTc: 512 Interpretive Statements SINUS TACHYCARDIA LEFT ATRIAL ABNORMALITY CONSIDER RIGHT VENTRICULAR HYPERTROPHY T ABNORMALITY IN ANTERIOR LEADS ABNORMAL ECG RI6.01 No previous ECG available for comparison
--- NOTE | 2019-07-24 20:49 | RAD ---
EXAM: CT Head without IV contrast INDICATION: Dizziness. TECHNIQUE: Multi-detector row CT images were obtained of the head without the use of IV contrast. All CT scans performed at this facility utilize dose optimization techniques as appropriate to the exam, including the following: Automated exposure control and adjustment of the mA and/or KV according to patient size (this includes techniques or standardized protocols for targeted exams where dose is indication/reason for exam). COMPARISON: None FINDINGS: BRAIN PARENCHYMA: No evidence of acute intraparenchymal hemorrhage or infarct. No abnormal parenchymal density or mass. VENTRICLES & EXTRA-AXIAL SPACES: Ventricles are within normal limits. Basilar cisterns are patent. No pathologic extra-axial fluid collection or mass. ORBITS: Orbital contents are unremarkable. SINUSES: Visualized paranasal sinuses and mastoid air cells are clear. OSSEOUS & SOFT TISSUES: Calvarium and skull base are intact. IMPRESSION: Normal CT of the head without contrast. Electronically signed by: Kirti Ledesma MD (07/24/2019 8:46 PM) [facility]
[2019-07-24 21:30] VITALS: BP 145/85
[2019-07-24] MEDS ORDERED: KETOROLAC 30 MG/ML VIAL. IVP PRN (22:00)
[2019-07-24 23:00] VITALS: BP 114/66
[2019-07-24 23:15] VITALS: BP 124/71
[2019-07-24 23:45] VITALS: BP 115/70
[2019-07-25] VITALS (9 sets, daily range): BP systolic 111–143; BP diastolic 69–88
[2019-07-25 05:10] LABS: HEMOGLOBIN 7.4 g/dL (12.0-15.5)
[2019-07-25] MEDS: IPRATRPIUM/ALBUTEROL 0.5/2.5MG 3 ML NEBU. NEB SCH (08:00)
[2019-07-25] MEDS ORDERED: FERROUS SULFATE 325 MG TABLET. PO SCH (09:00)
[2019-07-25] MEDS ORDERED: VITAMIN B COMPLEX TABLET. PO SCH (09:00)
[2019-07-25] MEDS ORDERED: KETOROLAC 15 MG/ML VIAL. IVP ONE (09:15)
[2019-07-25] MEDS ORDERED: DEXAMETHASONE SOD PHOS 4 MG/ML VIAL IVP ONE (09:15)
[2019-07-25] MEDS ORDERED: PROCHLORPERAZINE 10 MG/2 ML VIAL. IM PRN (09:15)
[2019-07-25] MEDS ORDERED: IRON SUCROSE COMPLEX 400 MG in IV NORMAL SALINE 250ML 250 ML IV ONE (09:30)
--- NOTE | 2019-07-25 10:48 | PDOC3 ---
Discharge Summary Visit Information Date of Admission: Jul 24, 2019 Date of Discharge: Jul 25, 2019 Admitting Diagnosis Comment: Iron deficiency anemia symptomatic History of gastric bypass Final Diagnosis Problems Medical Problems: (1) Dizziness Status: Acute (2) Severe anemia Status: Acute Brief Hospital Course Allergies Allergies Coded Allergies Type Severity Reaction Last Updated Verified morphine Allergy Severe Cardiac Arrest 08/31/13 Yes Vital Signs Vital Signs Date Time Temp Pulse Resp B/P (MAP) Pulse Ox O2 Delivery O2 Flow Rate FiO2 07/25/19 07:59 98.3 82 18 140/80 (100) 98 Room Air 98.3 Lab Results Laboratory Tests Test 07/24/19 19:00 07/24/19 19:30 07/25/19 04:35 White Blood Count 6.2 x10^3/uL (4.0-11.0) Red Blood Count 3.35 x10^6/uL (3.50-5.70) Hemoglobin 6.1 g/dL (12.0-15.5) 7.4 g/dL (12.0-15.5) Hematocrit 20.2 % (36.0-47.0) 24.0 % (36.0-47.0) Mean Corpuscular Volume 60 fL (79-100) Mean Corpuscular Hemoglobin 18 pg (25-35) Mean Corpuscular Hemoglobin Concent 30 g/dL (31-37) Red Cell Distribution Width 18.0 % (11.5-14.5) Platelet Count 473 x10^3/uL (140-400) Neutrophils (%) (Auto) 55 % (31-73) Lymphocytes (%) (Auto) 36 % (24-48) Monocytes (%) (Auto) 6 % (0-9) Eosinophils (%) (Auto) 2 % (0-3) Basophils (%) (Auto) 1 % (0-3) Neutrophils # (Auto) 3.4 x10^3/uL (1.8-7.7) Lymphocytes # (Auto) 2.2 x10^3/uL (1.0-4.8) Monocytes # (Auto) 0.4 x10^3/uL (0.0-1.1) Eosinophils # (Auto) 0.1 x10^3/uL (0.0-0.7) Basophils # (Auto) 0.1 x10^3/uL (0.0-0.2) Platelet Estimate Increased (ADEQUATE) Hypochromasia Mod Microcytosis Mod Macrocytosis Slight Rouleau Present Absolute Reticulocyte Count 0.049 x10^6/uL (0.020-0.120) Percent Reticulocyte Count 1.5 % (0.5-2.3) Immature Reticulocyte Fraction 0.37 (0.20-0.60) Prothrombin Time 12.7 SEC (11.7-14.0) Prothromb Time International Ratio 1.0 (0.8-1.1) Sodium Level 138 mmol/L (136-145) Potassium Level 3.8 mmol/L (3.5-5.1) Chloride Level 104 mmol/L (98-107) Carbon Dioxide Level 25 mmol/L (21-32) Anion Gap 9 (6-14) Blood Urea Nitrogen 14 mg/dL (7-20) Creatinine 0.6 mg/dL (0.6-1.0) Estimated GFR (Cockcroft-Gault) 109.1 BUN/Creatinine Ratio 23 (6-20) Glucose Level 82 mg/dL (70-99) Calcium Level 8.1 mg/dL (8.5-10.1) Magnesium Level 1.9 mg/dL (1.8-2.4) Total Bilirubin 0.2 mg/dL (0.2-1.0) Aspartate Amino Transf (AST/SGOT) 26 U/L (15-37) Alanine Aminotransferase (ALT/SGPT) 19 U/L (14-59) Alkaline Phosphatase 86 U/L (46-116) Creatine Kinase 186 U/L (26-192) Troponin I Quantitative < 0.017 ng/mL (0.000-0.055) DH-Het-F-Type Natriuretic Peptide 143 pg/mL (0-124) Total Protein 6.3 g/dL (6.4-8.2) Albumin 3.1 g/dL (3.4-5.0) Albumin/Globulin Ratio 1.0 (1.0-1.7) Lipase 90 U/L (73-393) Thyroid Stimulating Hormone (TSH) 1.760 uIU/mL (0.358-3.74) Urine Collection Type Unknown Urine Color Yellow Urine Clarity Clear Urine pH 7.5 Urine Specific [place] 1.020 Urine Protein Negative mg/dL (NEG-TRACE) Urine Glucose (UA) Negative mg/dL (NEG) Urine Ketones (Stick) Negative mg/dL (NEG) Urine Blood Negative (NEG) Urine Nitrite Negative (NEG) Urine Bilirubin Negative (NEG) Urine Urobilinogen Dipstick 0.2 mg/dL (0.2 mg/dL) Urine Leukocyte Esterase Negative (NEG) Urine RBC 1-2 /HPF (0-2) Urine WBC 1-4 /HPF (0-4) Urine Squamous Epithelial Cells Few /LPF Urine Bacteria 0 /HPF (0-FEW) Urine Test Negative (NEG) Urine Opiates Screen Neg (NEG) Urine Methadone Screen Neg (NEG) Urine Barbiturates Neg (NEG) Urine Phencyclidine Screen Neg (NEG) Urine Amphetamine/Methamphetamine Neg (NEG) Urine Benzodiazepines Screen Neg (NEG) Urine Cocaine Screen Neg (NEG) Urine Cannabinoids Screen Neg (NEG) Urine Ethyl Alcohol Neg (NEG) Laboratory Tests Test 07/24/19 19:00 07/24/19 19:30 07/25/19 04:35 White Blood Count 6.2 x10^3/uL (4.0-11.0) Red Blood Count 3.35 x10^6/uL (3.50-5.70) Hemoglobin 6.1 g/dL (12.0-15.5) 7.4 g/dL (12.0-15.5) Hematocrit 20.2 % (36.0-47.0) 24.0 % (36.0-47.0) Mean Corpuscular Volume 60 fL (79-100) Mean Corpuscular Hemoglobin 18 pg (25-35) Mean Corpuscular Hemoglobin Concent 30 g/dL (31-37) Red Cell Distribution Width 18.0 % (11.5-14.5) Platelet Count 473 x10^3/uL (140-400) Neutrophils (%) (Auto) 55 % (31-73) Lymphocytes (%) (Auto) 36 % (24-48) Monocytes (%) (Auto) 6 % (0-9) Eosinophils (%) (Auto) 2 % (0-3) Basophils (%) (Auto) 1 % (0-3) Neutrophils # (Auto) 3.4 x10^3/uL (1.8-7.7) Lymphocytes # (Auto) 2.2 x10^3/uL (1.0-4.8) Monocytes # (Auto) 0.4 x10^3/uL (0.0-1.1) Eosinophils # (Auto) 0.1 x10^3/uL (0.0-0.7) Basophils # (Auto) 0.1 x10^3/uL (0.0-0.2) Platelet Estimate Increased (ADEQUATE) Hypochromasia Mod Microcytosis Mod Macrocytosis Slight Rouleau Present Absolute Reticulocyte Count 0.049 x10^6/uL (0.020-0.120) Percent Reticulocyte Count 1.5 % (0.5-2.3) Immature Reticulocyte Fraction 0.37 (0.20-0.60) Prothrombin Time 12.7 SEC (11.7-14.0) Prothromb Time International Ratio 1.0 (0.8-1.1) Sodium Level 138 mmol/L (136-145) Potassium Level 3.8 mmol/L (3.5-5.1) Chloride Level 104 mmol/L (98-107) Carbon Dioxide Level 25 mmol/L (21-32) Anion Gap 9 (6-14) Blood Urea Nitrogen 14 mg/dL (7-20) Creatinine 0.6 mg/dL (0.6-1.0) Estimated GFR (Cockcroft-Gault) 109.1 BUN/Creatinine Ratio 23 (6-20) Glucose Level 82 mg/dL (70-99) Calcium Level 8.1 mg/dL (8.5-10.1) Magnesium Level 1.9 mg/dL (1.8-2.4) Total Bilirubin 0.2 mg/dL (0.2-1.0) Aspartate Amino Transf (AST/SGOT) 26 U/L (15-37) Alanine Aminotransferase (ALT/SGPT) 19 U/L (14-59) Alkaline Phosphatase 86 U/L (46-116) Creatine Kinase 186 U/L (26-192) Troponin I Quantitative < 0.017 ng/mL (0.000-0.055) XF-Lug-N-Type Natriuretic Peptide 143 pg/mL (0-124) Total Protein 6.3 g/dL (6.4-8.2) Albumin 3.1 g/dL (3.4-5.0) Albumin/Globulin Ratio 1.0 (1.0-1.7) Lipase 90 U/L (73-393) Thyroid Stimulating Hormone (TSH) 1.760 uIU/mL (0.358-3.74) Urine Collection Type Unknown Urine Color Yellow Urine Clarity Clear Urine pH 7.5 Urine Specific [place] 1.020 Urine Protein Negative mg/dL (NEG-TRACE) Urine Glucose (UA) Negative mg/dL (NEG) Urine Ketones (Stick) Negative mg/dL (NEG) Urine Blood Negative (NEG) Urine Nitrite Negative (NEG) Urine Bilirubin Negative (NEG) Urine Urobilinogen Dipstick 0.2 mg/dL (0.2 mg/dL) Urine Leukocyte Esterase Negative (NEG) Urine RBC 1-2 /HPF (0-2) Urine WBC 1-4 /HPF (0-4) Urine Squamous Epithelial Cells Few /LPF Urine Bacteria 0 /HPF (0-FEW) Urine Test Negative (NEG) Urine Opiates Screen Neg (NEG) Urine Methadone Screen Neg (NEG) Urine Barbiturates Neg (NEG) Urine Phencyclidine Screen Neg (NEG) Urine Amphetamine/Methamphetamine Neg (NEG) Urine Benzodiazepines Screen Neg (NEG) Urine Cocaine Screen Neg (NEG) Urine Cannabinoids Screen Neg (NEG) Urine Ethyl Alcohol Neg (NEG) Brief Hospital Course Ms. Lubin is a 44 old fermale who presented with symptomatic anemia. The patient had a hemoglobin of 6.6 and 1 unit of packed red blood cells were transfused. The patient's hemoglobin today was 7.7 and she felt much better, the patient will receive an iron infusion prior to dismissal and she was also complaining of headache which may have been related to her severe anemia. Symptomatic relief of her symptoms were provided and she was in good spirits to be dismissed later in the day home after her iron infusion. No concerns voiced prior to dismissal Physical exam Lungs clear to auscultation bilaterally with good inspiratory effort Cardia vascular exam S1-S2 regular rhythm no murmurs Discharge Information Condition at Discharge: Improved Follow Up: Weeks Disposition/Orders: D/C to Home Scheduled B12/Levomefolate Calcium/B-6 (Folbic Rf Tablet) 1 Each Tablet, 1 EACH PO DAILY, #100 Prescribed by: SHERRELL QUIROZ on 10/29/16 1000 Last Action: Converted on 07/24/191945 by XENA LEE MD Ferrous Sulfate (Ferrous Sulfate) 325 Mg Tablet, 1 TAB PO DAILY, #90 Ref 0 Prescribed by: SHERRELL QUIROZ on 10/29/16 1000 Last Action: Continued on 07/24/191945 by XENA LEE MD Miscellaneous Medications [No home medications] , (Reported) Entered as Reported by: CLARK MIRAMONTES on 10/28/16 514 XENA LEE MD Jul 25, 2019 10:48
--- NOTE | 2019-07-25 13:29 | NUR ---
Discharge Note: SHABANA CASTILLO J5 [facility] Discharge instructions and discharge home medications reviewed with Patient and a copy given. All questions have been answered and understanding verbalized. The following instructions and handouts were given: Iron deficiency anemia Discontinued lines and drains: Peripheral IV intact. Patient discharged to Home or Self Care with Family Member via Ambulated
== END 2019-07-25 13:38 | disposition home or self-care (01) | DRG 812 ==
LOC: ER 18:19 → 5 SOUTH 19:25
PROVIDERS: ADMIT Internal Medicine; ATTEND Internal Medicine
PROC: 30233N1 Transfusion of Nonautologous Red Blood Cells into Peripheral Vein, Percutaneous Approach (ICD-10-PCS; principal; 2019-07-24)
DX: D50.9 Iron deficiency anemia, unspecified (principal); E11.9 Type 2 diabetes mellitus without complications; F41.9 Anxiety disorder, unspecified; Z87.891 Personal history of nicotine dependence; Z98.84 Bariatric surgery status; Z79.899 Other long term (current) drug therapy; Z88.8 Allergy status to other drugs, medicaments and biological substances
CPT/HCPCS: 36415; 70450; 71046; 80053; 80307; 81001; 81025; 82550; 82607; 82746; 83690; 83735; 83880; 84443; 84484; 85014; 85018; 85025; 85045; 85610; 86850; 86870; 86900; 86901; 86922; 93005; J1100; J1756; J1885; J7030; J7050; P9016; G0378

== ENCOUNTER → 2020-03-10 | Outpatient (CLI) | payer BC ==
[2019-07-25 07:59] VITALS: BP 140/80
--- NOTE | 2020-03-10 14:34 | KCIC ---
HIP RIGHT 2V WITH PELVIS DATE: 03/10/2020 12:00 AM INDICATION: CHRONIC RIGHT HIP PAIN COMPARISON: None. FINDINGS: Bones: There is no evidence of acute fracture or dislocation. 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 Miscellaneous: None. 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 Electronically signed by: Niko Wylie MD (03/10/2020 2:32 PM) [id number]
== END ==
LOC: KCIC 13:13
PROVIDERS: ATTEND Nurse Practitioner Family
DX: M16.11 Unilateral primary osteoarthritis, right hip (principal)
CPT/HCPCS: 73502